=== PATIENT | female | born 1995 | race African-American/Black ===

== ENCOUNTER 2019-11-18 16:20 | Emergency (ER) | payer MEDICAID ==
[~2019-11-18] VITALS: Ht 177.8 cm; Wt 60.0 kg
[2019-11-18] MEDS ORDERED: SODIUM CHLORIDE 0.9% 1,000 ML IV ONE ×2 (17:39→19:33)
[2019-11-18 17:56] LABS: BASOPHILS % 0.7 % (0.0-2.0); EOSINOPHILS % 1.2 % (0.0-5.0); HEMATOCRIT. 42.4 % (36.0-48.0); HEMOGLOBIN. 14.4 g/dL (12.0-16.0); LYMPHOCYTES % 36.9 % (20.0-50.0); MEAN CORPUSCULAR HEMOGLOBIN 28.6 pg (28.0-32.0); MEAN CORPUSCULAR VOLUME 84.3 fL (81.0-99.0); MEAN PLATELET VOLUME 7.8 fl (7.4-10.4); MONOCYTES % 8.1 % (2.0-8.0); NEUTROPHILS % 53.1 % (40.0-76.0); PLATELET 380 x1000/uL (130-400); RED BLOOD CELL COUNT 5.03 mill/uL (4.2-5.4); RED CELL DISTRIBUTION WIDTH 13.4 % (11.6-14.6)
[2019-11-18 18:12] LABS: CHLORIDE 105 mEq/L (98-107)
[2019-11-18 18:16] LABS: ETHANOL BLOOD 38 mg/dL
[2019-11-18 18:17] LABS: HCG SCREEN NEGATIVE
[2019-11-18 18:20] LABS: CREATINE KINASE 97 IU/L (26-192)
[2019-11-18 22:30] LABS: CLARITY URINE CLEAR (CLEAR); COLOR URINE YELLOW (YELLOW); KETONES URINE NEGATIVE (NEGATIVE); LEUKOCYTE ESTERASE URINE NEGATIVE (NEGATIVE); NITRITE URINE NEGATIVE (NEGATIVE); OCCULT BLOOD URINE NEGATIVE (NEGATIVE); PROTEIN URINE NEGATIVE (NEGATIVE); SPECIFIC GRAVITY URINE 1.013 (1.005-1.030); UROBILINOGEN URINE 0.2 E.U./dL (0.2-1.0)
[2019-11-18 22:59] LABS: *AMPHETAMINES SCREEN URINE NEGATIVE (NEGATIVE); *BARBITURATES SCREEN URINE NEGATIVE (NEGATIVE)
[2019-11-18 23:00] LABS: *COCAINE SCREEN URINE NEGATIVE (NEGATIVE); CANNABINOID URINE SCREEN NEGATIVE (NEGATIVE); METHADONE URINE SCREEN NEGATIVE (NEGATIVE); OPIATES URINE SCREEN NEGATIVE (NEGATIVE); PHENCYCLIDINE URINE SCREEN NEGATIVE (NEGATIVE)
[2019-11-18 23:04] LABS: *BENZODIAZEPINES SCREEN URINE PRESUMTIVE POSITIVE (NEGATIVE)
[2019-11-19 00:29] VITALS: BP 110/71
== END 2019-11-19 00:31 | disposition home or self-care (01) ==
LOC: ER 16:20
DX: F10.129 Alcohol abuse with intoxication, unspecified (principal); Y90.1 Blood alcohol level of 20-39 mg/100 ml; F41.9 Anxiety disorder, unspecified; F32.9 Major depressive disorder, single episode, unspecified
CPT/HCPCS: 36415; 80053; 80305; 80320; 80329; 81003; 82140; 82550; 83605; 84443; 84703; 85025; 93005; 99285; J7030; G0480